=== PATIENT | male | born 1975 | race Caucasian/White ===

== ENCOUNTER 2017-09-07 14:55 | Emergency (ER) | payer SELFPAY ==
[~2017-09-07] VITALS: Ht 170.2 cm; Wt 77.0 kg
[2017-09-07 15:02] VITALS: BP 118/72
== END 2017-09-07 17:55 | disposition home or self-care (01) ==
LOC: ER 14:58
DX: S01.01XA Laceration without foreign body of scalp, initial encounter (principal); S60.519A Abrasion of unspecified hand, initial encounter; Y09 Assault by unspecified means; Y93.89 Activity, other specified; Y92.89 Other specified places as the place of occurrence of the external cause; Y99.8 Other external cause status
CPT/HCPCS: 12001; 70450; 72125; 99284; Z7610

== ENCOUNTER 2017-10-02 07:50 | Emergency (ER) | payer SELFPAY ==
[~2017-10-02] VITALS: Ht 170.2 cm; Wt 77.0 kg
[2017-10-02 13:57] VITALS: BP 118/75
== END 2017-10-02 15:52 | disposition home or self-care (01) ==
LOC: ER 08:15
DX: Z48.00 Encounter for change or removal of nonsurgical wound dressing (principal); Z48.02 Encounter for removal of sutures
CPT/HCPCS: 99281

== ENCOUNTER 2017-10-04 17:28 | Emergency (ER) | payer SELFPAY | END 2017-10-04 19:06 | disposition left against medical advice (07) | LOC: ER 18:51 | DX: Z53.21 Procedure and treatment not carried out due to patient leaving prior to being seen by health care provider (principal) ==

== ENCOUNTER 2017-10-05 08:50 | Emergency (ER) | payer SELFPAY ==
[~2017-10-05] VITALS: Ht 157.5 cm; Wt 78.0 kg
[2017-10-05] MEDS ORDERED: ONDANSETRON 4MG ODT PO STA (09:37)
[2017-10-05] MEDS ORDERED: IBUPROFEN 600MG TABLET PO STA (09:37)
[2017-10-05] MEDS ORDERED: SODIUM CHLORIDE 0.9% 1,000 ML IV ONE (09:37)
[2017-10-05 10:05] LABS: BASOPHILS % 0.6 % (0.0-2.0); EOSINOPHILS % 0.1 % (0.0-5.0); HEMATOCRIT. 43.2 % (42.0-52.0); HEMOGLOBIN. 14.9 g/dL (14.0-18.0); LYMPHOCYTES % 11.5 % (20.0-50.0); MEAN CORPUSCULAR HEMOGLOBIN 28.9 pg (28.0-32.0); MEAN CORPUSCULAR VOLUME 83.4 fL (80.0-94.0); MEAN PLATELET VOLUME 7.6 fl (7.4-10.4); MONOCYTES % 9.3 % (2.0-8.0); NEUTROPHILS % 78.5 % (40.0-76.0); PLATELET 221 x1000/uL (130-400); RED BLOOD CELL COUNT 5.18 mill/uL (4.7-6.1); RED CELL DISTRIBUTION WIDTH 13.1 % (11.6-14.6)
[2017-10-05 10:08] LABS: PROTHROMBIN TIME 10.5 sec (9.4-11.6)
[2017-10-05 10:23] LABS: CHLORIDE 107 mEq/L (98-107)
[2017-10-05 12:37] LABS: CLARITY URINE CLEAR (CLEAR); COLOR URINE YELLOW (YELLOW); KETONES URINE NEGATIVE (NEGATIVE); LEUKOCYTE ESTERASE URINE 1+ (NEGATIVE); NITRITE URINE NEGATIVE (NEGATIVE); OCCULT BLOOD URINE TRACE (NEGATIVE); PH URINE 6.5 (4.5-8.0); PROTEIN URINE TRACE (NEGATIVE); SPECIFIC GRAVITY URINE 1.029 (1.005-1.030); UROBILINOGEN URINE 0.2 E.U./dL (0.2-1.0)
[2017-10-05] MEDS ORDERED: CEFTRIAXONE 1 G PREMIX 50 ML IV ONE (13:00)
[2017-10-05 14:20] VITALS: BP 127/72
== END 2017-10-05 15:08 | disposition home or self-care (01) ==
LOC: ER 09:36
DX: N20.0 Calculus of kidney (principal); N30.00 Acute cystitis without hematuria; F17.200 Nicotine dependence, unspecified, uncomplicated; F12.10 Cannabis abuse, uncomplicated
CPT/HCPCS: 36415; 74176; 80053; 81003; 83690; 85025; 85610; 96361; 96365; 99285; J0696; J7030; Q0162; Z7610

== ENCOUNTER 2017-10-06 05:52 | Emergency (ER) | payer SELFPAY ==
[~2017-10-06] VITALS: Ht 157.5 cm; Wt 78.0 kg
[2017-10-06] MEDS ORDERED: ONDANSETRON HCL 4MG/2ML VIAL IV STA (08:54)
[2017-10-06] MEDS ORDERED: SODIUM CHLORIDE 0.9% 1,000 ML IV ONE (08:54)
[2017-10-06 09:34] LABS: BASOPHILS % 0.3 % (0.0-2.0); EOSINOPHILS % 0.1 % (0.0-5.0); HEMATOCRIT. 39.9 % (42.0-52.0); LYMPHOCYTES % 14.4 % (20.0-50.0); MEAN CORPUSCULAR HEMOGLOBIN 29.5 pg (28.0-32.0); MEAN CORPUSCULAR VOLUME 83.7 fL (80.0-94.0); MEAN PLATELET VOLUME 7.6 fl (7.4-10.4); MONOCYTES % 9.3 % (2.0-8.0); NEUTROPHILS % 75.9 % (40.0-76.0); PLATELET 182 x1000/uL (130-400); RED BLOOD CELL COUNT 4.77 mill/uL (4.7-6.1); RED CELL DISTRIBUTION WIDTH 12.8 % (11.6-14.6)
[2017-10-06 09:42] LABS: PROTHROMBIN TIME 10.6 sec (9.4-11.6)
[2017-10-06 09:50] LABS: CHLORIDE 105 mEq/L (98-107)
[2017-10-06] MEDS ORDERED: TRAMADOL 50MG TABLET PO ONE (12:45)
[2017-10-06] MEDS ORDERED: KETOROLAC 60MG/2ML VIAL IM ONE (12:45)
[2017-10-06] MEDS ORDERED: IOHEXOL-300 100 ML BOTTLE ONE (15:13)
[2017-10-06 16:34] VITALS: BP 126/61
== END 2017-10-06 16:35 | disposition home or self-care (01) ==
LOC: ER 05:52
DX: N20.0 Calculus of kidney (principal); F17.200 Nicotine dependence, unspecified, uncomplicated
CPT/HCPCS: 36415; 74177; 80053; 83690; 85025; 85610; 96360; 96361; 99285; J7030; Q9967; Z7610